=== PATIENT | female | born 1985 | race Caucasian/White ===

== ENCOUNTER 2017-03-18 12:38 | Emergency (ER) | payer OTHER ==
--- NOTE | 2017-03-18 13:13 | ERNOTE ---
ER Female HPI Date of Service: 03/18/17 Stated Complaint: EXCESSIVE BLEEDING, CRAMPING Presenting Symptoms: pelvic pain, vaginal bleeding Time Seen by Provider: 03/18/17 12:50 Source: patient Exam Limitations: no limitations Immunizations: IMMUNIZATION HX Immunizations Up to Date Yes Allergies/Adverse Reactions: Allergies omeprazole [From Prilosec] Allergy (Verified 03/18/17 12:54) Home Medications: HOME MEDICATIONS ALPRAZolam [Xanax] 0.5 mg PO BID PRN 03/18/17 [Last Taken Unknown] Naproxen [Naprosyn] 375 mg PO BID 03/18/17 [Last Taken Unknown] busPIRone HCL [Buspar] 5 mg PO DAILY 03/18/17 [Last Taken Unknown] metroNIDAZOLE [Flagyl] 500 mg PO Q12H #14 tab 03/18/17 [Last Taken Unknown] - History of Present Illness Narrative: 31 yo WF presents with two days of heavy vaginal bleeding and mid-line pelvic crampy pain. She has used a whole box of tampons. Pain has increased over the last 24 hours. Bleeding has continued and not changed. Had some vaginal spotting in mid-November but does not have regular periods due to polycystic ovaries. Has been sexually active in January but not since. Denies any dysuria. No fever, chills. Had D&C one year ago for two months of vaginal bleeding. Weight is 442 pounds. Review of Systems - Review of Systems Constitutional: Present: no symptoms reported ENT: Present: no symptoms reported Respiratory: Present: no symptoms reported Cardiology: Present: no symptoms reported Gastrointestinal/Abdominal: Present: no symptoms reported Musculoskeletal: Present: no symptoms reported Neurological: Present: no symptoms reported - Patient's Past Medical History Patient History - Medical: Headache, Migraines Patient History - Cardiac/Respiratory: Hypertension, Other - Has been taken off her hypertension meds Patient History - Surgical Procedures: D & C, T & A Patient History - Other: None - Social History Living Situations: home Psych History: No pertinent hx Alcohol Use: none Drug Use: none - Immunizations Immunizations Up to Date: Yes Physical Exam - Physical Exam General Appearance: Present: wd/wn, alert, mild distress Head Exam: Present: normal inspection, no evidence of injury Eye Exam: PERRL: bilateral, EOMI: bilateral Ears, Nose, Throat: Present: normal ENT inspection Neck: Present: normal inspection Respiratory: Present: no respiratory distress Cardiovascular/Chest: Present: regular rate, rhythm, no murmur Gastrointestinal/Abdominal: Present: soft, tenderness - mid-line suprapubic tenderness with deep palpation. Absent: guarding, rebound Extremity Exam: Present: other - diffuse non-pitting swelling without calf tenderness Neurological Exam: Present: alert, oriented, normal mood/affect, no motor/ sensory deficits Pelvic Exam: Present: other - Very unclean labial area/introitus. Vaginal vault with superficial ulcerations and abrasions. Old blood around perineum. Cannot visualize cervix. ED Progress - Results and Orders Patient's Lab Results:: I have reviewed the patient's lab results. - Vital Signs Patient's Vital Signs:: I have reviewed the patient's vital signs. Vital Signs: Vital Signs 03/18/17 12:47 Temperature 36.4 C L Pulse Rate 103 H Respiratory 12 Rate Blood Pressure 158/96 O2 Sat by Pulse 94 Oximetry - CT/Ultrasound CT/Ultrasound Narrative: No acute findings with limited interpretation due to obesity - Progress/Reassessment Chief Complaint: Genitourinary Problem Progress:: Improved Progress Note-Subjective: 03/18/17 15:54 No active bleeding while in ED noted. Pain minimal Plan - Plan Plan: home Metronidazole Fluids Follow up wt PCP Departure Clinical Impression: Cystitis, Vaginitis, Dehydration - Departure Disposition: Home self-care Condition: Fair Instructions: Vaginitis, [id number] Additional Instructions: Force fluids Use tylenol alternating every 3 hours with ibuprofen Use Flagyl as directed Follow up with PCP Referrals: Vanesa Gregory ARNP [Primary Care Provider] - Prescriptions: metroNIDAZOLE [Flagyl] 500 mg PO Q12H #14 tab
[2017-03-18 13:20] LABS: Hematocrit 34.6 % (37.0-47.0); Hemoglobin 11.1 gm/dL (12.5-16.0); Mean Cell Volume 76.5 fl (78-100); Mean Corpuscular Hemoglobin 24.6 pg (27-31); Mean Corpuscular Hgb Conc 32.1 g/dl (32-36); Mean Platelet Volume 8.7 fl (6.0-9.5); Neutrophil % 75.1 % (42-75.0); Platelet Count 351 K/mm3 (150-450); Red Blood Count 4.52 M/mm3 (4.2-5.4); Red Cell Distribution Width 15.4 % (11.5-14.0)
[2017-03-18 13:43] LABS: Urine Bilirubin Negative (NEGATIVE); Urine Blood 250 /ul (NEGATIVE); Urine Ketone Negative (NEGATIVE); Urine Nitrite Negative (NEGATIVE); Urine Protein 100 mg/dL (NEGATIVE); Urine Specific Gravity >=1.030 SP.GR. (1.005-1.010); Urine Urobilinogen Normal (NORMAL); Urine pH 5.5 pH (5.0-7.0)
[2017-03-18 13:44] LABS: Albumin * 3.1 gm/dl (3.4-5.0); Anion Gap 14.4 mmol/L (6.8-13.8); BUN/Creatinine Ratio 15.3 (9.0-21.6); Bilirubin, Total 0.2 mg/dL (0.0-1.1); Ca. Corrected For Albumin 8.8 mg/dL (8.4-10.2); Calcium * 8.4 mg/dL (7.9-10.9); Carbon Dioxide 25.5 mmol/L (24-32.6); Potassium 3.9 mmol/L (3.4-4.6); TSH * 1.908 uIU/mL (0.358-3.74); Total Protein 6.8 gm/dL (6.2-8.2)
[2017-03-18 14:02] LABS: Urine Appearance Slightly Cloudy; Urine Bacteria None Seen; Urine Color Yellow; Urine WBC TRACE /hpf (0-5)
[2017-03-18 14:03] LABS: Urine Amorphous Sediment Moderate - 2+ (NONE-FEW)
[2017-03-18] MEDS ORDERED: NORMAL SALINE 500 ML IV ONE (14:33)
[2017-03-18 15:45] VITALS: BP 153/94
== END 2017-03-18 16:10 | disposition home or self-care (01) ==
LOC: ER 12:38
DX: N30.90 Cystitis, unspecified without hematuria (principal); N76.0 Acute vaginitis; E86.0 Dehydration